=== PATIENT | female | born 2000 | race Hispanic/Latino ===

== ENCOUNTER 2021-08-05 23:46 | Emergency (ER) | payer OTHER ==
[~2021-08-05] VITALS: Ht 154.9 cm; Wt 74.8 kg
[2021-08-06 01:35] LABS: APPEARANCE,URINE Clear (CLEAR); BILIRUBIN,URINE Negative (NEGATIVE); COLOR,URINE Yellow (YELLOW); GLUCOSE, URINE (UA) Negative (NEGATIVE); KETONES,URINE >=160 mg/dL (NEGATIVE); LEUKOCYTE ESTERASE ,URINE Large (NEGATIVE); NITRATE,URINE Positive (NEGATIVE); OCCULT BLOOD,URINE Moderate (NEGATIVE); PH,URINE 5.5 (5.0-8.0); PROTEIN,URINE POS 1+ mg/dL (NEGATIVE)
[2021-08-06 01:39] LABS: HCG,QUAL RESULT NEGATIVE (NEGATIVE)
[2021-08-06 01:49] LABS: BACTERIA,URINE Moderate /HPF (None Seen); MUCUS,URINE Few LPF (None Seen)
[2021-08-06] MEDS ORDERED: CEFTRIAXONE 1G VIAL IVP ONE (03:00)
[2021-08-06] MEDS ORDERED: 0.9%NACL 1000ML 1,000 ML IV ONE (03:00)
[2021-08-06] MEDS ORDERED: METOCLOPRAMIDE 10 MG/2 ML VIAL IVP ONE (03:00)
[2021-08-06] MEDS ORDERED: PANTOPRAZOLE 40 MG/VIAL IVP ONE (03:00)
[2021-08-06] MEDS ORDERED: FAMOTIDINE 20MG VIAL IV ONE (03:00)
[2021-08-06] MEDS ORDERED: ONDANSETRON 4MG INJ IVP ONE (03:00)
[2021-08-06 03:21] LABS: BASOPHILS % (AUTO) 0.4 % (0.0-5.0); HEMATOCRIT 35.9 % (36-48); LYMPHOCYTES % (AUTO) 15.1 % (21.0-51.0); MEAN CORPUSCULAR HEMOGLOBIN 24.3 pg (27.0-33.0); MEAN CORPUSCULAR HGB CONC 31.8 g/dL (32.0-36.0); MEAN CORPUSCULAR VOLUME 76.5 fL (80-100); MONOCYTES % (AUTO) 9.6 % (3.0-13.0); NEUTROPHILS % (AUTO) 74.5 % (40.0-77.0); PLATELET COUNT (AUTO) 264 K/uL (130-400); RED BLOOD CELL COUNT(AUTO) 4.69 MIL/uL (4.00-5.50); RED CELL DISTRIBUTION WIDTH 15.4 % (11.0-15.5); WHITE BLOOD COUNT (AUTO) 10.7 K/uL (4.8-10.8)
[2021-08-06 03:24] LABS: CREATININE 0.7 mg/dL (0.5-1.5); POTASSIUM 3.8 mmol/L (3.5-5.1)
[2021-08-06 03:28] LABS: ALBUMIN 3.9 g/dL (3.5-5.0); BILIRUBIN,TOTAL 0.4 mg/dL (0.2-1.0); TOTAL PROTEIN, SERUM 8.6 g/dL (6.0-8.3)
[2021-08-06] MEDS ORDERED: METO-296 PO (04:40)
[2021-08-06] MEDS ORDERED: CEPH500B PO (04:40)
[2021-08-06] MEDS ORDERED: DICY20TA2 PO (04:40)
[2021-08-06] MEDS ORDERED: ONDA4TAB10 PO (04:40)
[2021-08-06 04:52] VITALS: BP 130/72
== END 2021-08-06 04:53 | disposition home or self-care (01) ==
LOC: EDH 23:46
DX: N12 Tubulo-interstitial nephritis, not specified as acute or chronic (principal); E86.9 Volume depletion, unspecified; R11.10 Vomiting, unspecified; Z79.899 Other long term (current) drug therapy
CPT/HCPCS: 36415; 74176; 80053; 81001; 81025; 83605; 83690; 85025; 87040; 87077; 87088; 87186; 96361; 96374; 96375; 99284; C9113; J0696; J2405; J2765; J3490; J7030